=== PATIENT | male | born 1980 | race Caucasian/White ===

== ENCOUNTER 2021-04-11 14:36 | Inpatient (IN) | payer SELFPAY ==
[~2021-04-11] VITALS: Ht 172.7 cm; Wt 59.0 kg
[2021-04-11 14:36] VITALS: BP_SYST 131
--- NOTE | 2021-04-11 14:36 | NUR ---
PT BROUGHT IN BY [facility], PLACED IN BED #1 AND TRIAGED. PT YELLING THAT HE WOULD LIKE TO KILL HIMSELF. HOUSE NORA NAIK NOTIFIED OF NEED FOR SITTER. REPORT GIVEN TO BETTIE
[2021-04-11] MEDS ORDERED: LORazepam 1 MG TABLET PO ONE (15:00)
--- NOTE | 2021-04-11 15:00 | NUR ---
pt yelling and gitting out of bed dr mcbride administered 150mg ketamine im right arm
[2021-04-11] MEDS ORDERED: KETAMINE 30 MG/3 ML SYRINGE IM ONE (15:30)
--- NOTE | 2021-04-11 15:33 | NUR ---
real bonilla and [facility] dept placed on dts 5150 shouting that he wants to kill himself
--- NOTE | 2021-04-11 15:42 | NUR ---
covid and mrsa obtained and sent to lab for processing
--- NOTE | 2021-04-11 15:50 | NUR ---
# 20 gauge angiocath placed to RAC. Use of asceptic technique. Opsite placed over site. Blood return noted. Blood for lab drawn from site. Flushed with 10 cc of normal saline. No evidence of infiltration noted. Patient tolerated well.
--- NOTE | 2021-04-11 16:00 | NUR ---
Patient placed on suicide precautions. Patient placed in room within close proximity to nurses' station for closer observation and monitoring. All clothing removed, placed in hospital gown. All belongings inventoried, placed in bags and removed from room. Patient is not currently medically cleared and is on cardiac and blood pressure monitoring as well as pulse oximetry.
--- NOTE | 2021-04-11 16:09 | NUR ---
security at bedside for wanding and belongings given to Certified Vehicle Fire InvestigatorEben.
--- NOTE | 2021-04-11 16:12 | NUR ---
Oxygen applied at 2 L per minute per nasal cannula O2 sats 99% by pulse oximetry.
[2021-04-11 16:19] LABS: BASOPHILS % (AUTO) 0.6 % (0.0-2.0); EOSINOPHILS % (AUTO) 0.4 % (0.0-4.0); HEMATOCRIT 40.1 % (36-54); HEMOGLOBIN 13.3 g/dL (14.0-18.0); LYMPHOCYTES # (AUTO) 1.9 K/uL (1.0-5.5); MEAN CORPUSCULAR HEMOGLOBIN 26 pg (27-31); MEAN CORPUSCULAR HGB CONC 33 % (32-36); MEAN CORPUSCULAR VOLUME 78 fL (79.0-98.0); MONOCYTES # (AUTO) 0.3 K/uL (0.0-1.0); MONOCYTES % (AUTO) 5.5 % (1.7-9.3); NEUTROPHILS % (AUTO) 57.5 % (40.0-70.0); PLATELET COUNT (AUTO) 242 K/uL (130-430); RED BLOOD CELL COUNT(AUTO) 5.17 MIL/uL (4.2-6.2); RED CELL DISTRIBUTION WIDTH 18.9 % (9.0-15.0); WHITE BLOOD COUNT (AUTO) 5.2 K/uL (4.8-10.8)
[2021-04-11 17:00] LABS: BARBITURATE, URINE NEGATIVE (NEG <=200); BENZODIAZEPINE, URINE POSITIVE (NEG <=150); CANNABINOID, URINE NEGATIVE (NEG <=50); COCAINE, URINE NEGATIVE (NEG <=150); METHAMPHETAMINES SCREEN,URINE NEGATIVE (NEG <=500); OPIATE, URINE NEGATIVE (NEG <=100); PHENCYCLIDINE SCREEN,URINE NEGATIVE (NEG <=25); UR TRICYCLIC ANTIDEPRESSANTS NEGATIVE (NEG <=300); URINE AMPHETAMINE NEGATIVE (NEG <=500); URINE METHADONE NEGATIVE (NEG <=200); URINE OXYCODONE SCREEN NEGATIVE (NEG <=100); URINE PROPOXYPHENE SCREEN NEGATIVE (NEG <=300)
[2021-04-11 17:02] LABS: ANION GAP 15 (5-15); CALCIUM 8.5 mg/dL (8.4-11.0); CHLORIDE 99 mmol/L (98-107); GLUCOSE 106 mg/dL (70-99); POTASSIUM 3.4 mmol/L (3.5-5.1); SODIUM SERUM 138 mmol/L (136-145); UREA NITROGEN, BLOOD 12 mg/dL (8-21)
[2021-04-11 17:09] LABS: GFR AFRICAN AMERICAN 161 mL/min (>90)
[2021-04-11 17:11] LABS: ALANINE AMINOTRANSFERASE 41 U/L (12-78); ALBUMIN 3.9 g/dL (3.4-4.8); ALCOHOL, BLOOD 313 mg/dL (<10); ASPARTATE AMINOTRANSFERASE 23 U/L (10-37); TOTAL BILIRUBIN 0.3 mg/dL (0.0-1.0)
[2021-04-11 17:13] LABS: ACETAMINOPHEN < 1 ug/mL (1-30)
[2021-04-11] MEDS ORDERED: KETAMINE 30 MG/3 ML SYRINGE IVP ONE ×3 (17:30→22:00)
--- NOTE | 2021-04-11 17:31 | NUR ---
PATIENT YELLING AND SCREAMINING. AT BEDSIDE. KETAMINE [address] MG IVP ADMIN[address] BY DR. BATEMAN.
[2021-04-11] MEDS ORDERED: NACL 0.9% 3,000 ML IV ONE (17:45)
--- NOTE | 2021-04-11 17:45 | NUR ---
PATIENT RESTING COMFORTABLY. ON 2L NC SATURATING AT 99% VSS. WILL CONTINUE TO MONITOR.
[2021-04-11] MEDS ORDERED: KETAMINE 30 MG/3 ML SYRINGE ONE (20:30)
--- NOTE | 2021-04-11 20:31 | NUR ---
Patient yelling and screaming stating " I want to ." repeatedly and states "I am going to tonight." Patient attempting to get out of bed and disrobing. notified. Dr. Pritchard at bedside administered Ketamine 60 mg IVP. Will continue to monitor patient.
--- NOTE | 2021-04-11 21:30 | NUR ---
Changed linens on patient's gurney, saturated in urine. found bag with cell phone, seroquel medication and $726.76 counted at bedside with security and sent to safe.
[2021-04-11] MEDS ORDERED: LORazepam 2 MG/ML VIAL ONE (21:41)
[2021-04-11] MEDS ORDERED: LORazepam 2 MG/ML VIAL IVP ONE ×2 (21:45→22:45)
--- NOTE | 2021-04-11 22:08 | NUR ---
Patient awake again yelling and screaming in foreign language. Patient reports wanting to urinate. Patient given urinal. This RN explained to patient michelle the is a fall risk and cannot get out of bed. Patient continues to yell and scream louder. Dr. Pritchard at bedside given Ketamine 60 mg IVP.
[2021-04-11] MEDS ORDERED: ED NON STOCK ORDER 1 EA MISC IM ONE (22:30)
[2021-04-11] MEDS ORDERED: HALOPERIDOL LACTATE 5 MG/ML VIAL ONE (22:49)
--- NOTE | 2021-04-11 22:50 | NUR ---
Patient crawling out of bed and seen on floor on knees. No KO. Abrasion to right forehead. No other injuries noted. MD notified.
[2021-04-11] MEDS ORDERED: OLANZapine IntraMuscular 10 MG VIAL (FOR I.M. INJECTION ONLY) IM ONE (23:00)
[2021-04-11] MEDS ORDERED: HALOPERIDOL LACTATE 5 MG/ML VIAL IM ONE (23:00)
--- NOTE | 2021-04-11 23:15 | NUR ---
Patient placed in four point restraint for safety. Patient yelling and screaming attempting to get out of bed. Dr. Ward placed orders for restraints.
--- NOTE | 2021-04-11 23:18 | NUR ---
Samy pinon in EDM - 04/12/21 at 0102 by [email or web address] Patient placed in four point restraint for safety. Patient yelling and screaming attempting to get out of bed. Dr. Ward placed orders for restraints.
--- NOTE | 2021-04-11 23:20 | NUR ---
accompanied patient to CT scan for CT of head. PAtient tolerated well
--- NOTE | 2021-04-11 23:32 | NUR ---
return from ct scan. patient tolerated well. no acute distress noted. will continue to monitor.
[2021-04-12] VITALS (16 sets, daily range): BP systolic 93–148
--- NOTE | 2021-04-12 00:32 | NUR ---
Samy pinon in EDM - 04/12/21 at 0244 by [email or web address] Patient is medically cleared at this time per .
[2021-04-12] MEDS ORDERED: LORazepam 2 MG/ML VIAL IVP ONE ×4 (01:30→07:30)
--- NOTE | 2021-04-12 01:32 | NUR ---
Patient attempting to get out of bed but currently on restraints. Patient is mildly sedated at this time. will continue to monitor.
--- NOTE | 2021-04-12 02:29 | NUR ---
Patient laying in gurney in four point restraint. Patient able to respond to verbal stimuli. Patient unable to contract for safety and once aroused enough is attempting to get out of bed. Unable to reposition patient at this this time but patient is able to move himself to be comfortable.
[2021-04-12] MEDS ORDERED: NACL 0.9% 1,000 ML IV ONE (02:45)
--- NOTE | 2021-04-12 02:56 | NUR ---
Patient will be admitted to care of [facility]. Admitted to unit. Will go to room . Belongings list completed. Complete and up to date summary report printed. SBAR report to be given at bedside with opportunity for questions.
[2021-04-12] MEDS ORDERED: HALOPERIDOL LACTATE 5 MG/ML VIAL IVP ONE ×3 (03:00→05:15)
[2021-04-12] MEDS ORDERED: FOLIC ACID 1 MG, THIAMINE HCL 100 MG, MAGNESIUM SULFATE 1 GM, MVI 10 ML in NACL 0.9% 1,... IV ONE (03:00)
[2021-04-12] MEDS ORDERED: BENZTROPINE MESYLATE 2 MG/ 2 ML AMP IVP ONE (03:15)
--- NOTE | 2021-04-12 03:15 | NUR ---
REPORT GIVEN TO LANCE ESPOSITO FOR CONTINUATION OF CARE.
[2021-04-12] MEDS ORDERED: MVI 10 ML VIAL IV ONE (03:19)
[2021-04-12] MEDS ORDERED: THIAMINE HCL 100 MG/ML VIAL ONE (03:19)
[2021-04-12] MEDS ORDERED: FOLIC ACID 5 MG/ML VIAL IV ONE (03:19)
[2021-04-12] MEDS ORDERED: MAGNESIUM SULFATE 1 GM/2 ML VIAL ONE (03:19)
--- NOTE | 2021-04-12 03:45 | NUR ---
REPORT RECEIVED FROM LANCE BRUNNER. PT AWAKE AND SCREAMING UNCONTROLLABLY. UNABLE TO VERBALLY CONSOLE PT. N/O FOR HALDOL 5MG GIVEN. IVF STARTED AT 100 ML. IV RUNNING WITHOUT DIFFICULTIES. DENIES ANY PAIN. REPOSITIONED IN BED. PT IN 4 POINT RESTRAINTS DUE TO VIOLENT BEHAVIOR TOWARDS STAFF.
--- NOTE | 2021-04-12 04:30 | NUR ---
GAVE PT URINAL AND OUTPUT OF 700ML OF YELLOW URINE.
--- NOTE | 2021-04-12 04:31 | NUR ---
Medication reconciliation UNABLE TO BE completed D/T PATIENT BEING ALTERED AND INCOHERENT AND COMBATIVE .
--- NOTE | 2021-04-12 05:04 | NUR ---
Patient's code status is [FULL CODE] paperwork completed and placed in chart.
[2021-04-12] MEDS ORDERED: HALOPERIDOL LACTATE 5 MG/ML VIAL ONE (05:43)
--- NOTE | 2021-04-12 05:44 | NUR ---
PT CONTINUE TO YELL AND SCREAM. PT ON 4PT SAFETY RESTRAINTS FOR DANGER TO SELF AND VIOLENT BEHAVIOR. REPOSITIONED FOR COMFORT. VSS. NO SIGNS OF VISUAL DISTRESS AT THIS TIME.
--- NOTE | 2021-04-12 07:03 | NUR ---
REPORT GIVEN TO LANCE ALEXANDRE TO ASSUME ALL CARE OF PT.
--- NOTE | 2021-04-12 08:05 | NUR ---
Patient will be admitted to [facility]. Admitted to icu unit. Will go to room 8. Belongings list completed. Complete and up to date summary report printed. SBAR report to be given at bedside with opportunity for questions.
--- NOTE | 2021-04-12 08:40 | NUR ---
Opening Received report from CHILD WELFARE DIRECTOR using SBAR format. Pt resting comfortably in bed, no signs of immediate distress. Bed locked in lowest position. All safety checks have been completed.
[2021-04-12] MEDS ORDERED: ACETAMINOPHEN 325 MG TABLET PO PRN (09:15)
[2021-04-12] MEDS ORDERED: NALOXONE HCL 0.4 MG/ML AMP (NARCAN) IVP PRN ×2 (09:15)
[2021-04-12] MEDS ORDERED: ONDANSETRON HCL 4 MG/2 ML VIAL IVP PRN (09:15)
[2021-04-12] MEDS ORDERED: BANANA BAG 1 EA, MVI 10 ML, THIAMINE HCL 100 MG, FOLIC ACID 1 MG, MAGNESIUM SULFATE 1 G... IV SCH ×5 (09:15)
--- NOTE | 2021-04-12 10:00 | NUR ---
Rounding Dr Brewer rounding at bedside, updated on pt. New orders received
[2021-04-12] MEDS: D5/0.45 NS 1,000 ML IV SCH (10:20)
[2021-04-12] MEDS: HALOPERIDOL LACTATE 5 MG/ML VIAL IVP PRN ×2 (10:56→22:39)
[2021-04-12] MEDS: THIAMINE HCL 100 MG, MAGNESIUM SULFATE 1 GM in NS 100 ML IV SCH (11:05)
[2021-04-12] MEDS: DEXMEDETOMIDINE HCL 400 MCG in NS 96 ML IV PRN (12:49)
[2021-04-12] MEDS: cefTRIAXone 1 GM in D5W 50 ML IV SCH (12:50)
--- NOTE | 2021-04-12 13:00 | NUR ---
Pt started on precedex to reduce agitation and combative behavior.
[2021-04-12] MEDS: chlordiazePOXIDE HCL 25 MG CAPSULE PO SCH ×2 (15:00→22:07)
[2021-04-12] MEDS: FOLIC ACID 1 MG, MVI 10 ML in NACL 0.9% 1,000 ML IV SCH (15:29)
--- NOTE | 2021-04-12 16:09 | NUR ---
Patient is currently sedated due to violent behavior and ETOH intoxication. He is on a 5150 hold for danger to self and others-placed by the police. Unable to interview the patient at this time due to sedated state.
--- NOTE | 2021-04-12 21:42 | NUR ---
PT YELLING TO PEE BUT ONCE IM IN THE ROOM HE SAYS HE DOES NOT HAVE TO PEE BUT HE'D LIKE COFFEE
[2021-04-12] MEDS: HYDROcodone/ACETAMIN 10-325 MG TAB PO PRN (22:10)
[2021-04-12] MEDS: LORazepam 2 MG/ML VIAL IVP PRN (22:41)
[2021-04-13] VITALS (22 sets, daily range): BP systolic 95–146
[2021-04-13] MEDS: D5/0.45 NS 1,000 ML IV SCH ×3 (02:00→15:15)
[2021-04-13] MEDS: HYDROcodone/ACETAMIN 10-325 MG TAB PO PRN ×2 (03:55→08:26)
[2021-04-13] MEDS ORDERED: DEXMEDETOMIDINE HCL 200 MCG/2 ML VIAL IV ONE (04:34)
[2021-04-13] MEDS: DEXMEDETOMIDINE HCL 400 MCG in NS 96 ML IV PRN ×3 (04:46→22:44)
[2021-04-13 06:57] LABS: BASOPHILS % (AUTO) 0.7 % (0.0-2.0); EOSINOPHILS # (AUTO) 0.1 K/uL (0.0-0.4); EOSINOPHILS % (AUTO) 1.9 % (0.0-4.0); HEMOGLOBIN 10.6 g/dL (14.0-18.0); LYMPHOCYTES # (AUTO) 1.1 K/uL (1.0-5.5); LYMPHOCYTES % (AUTO) 27.2 % (20.5-51.5); MEAN CORPUSCULAR HEMOGLOBIN 25 pg (27-31); MEAN CORPUSCULAR HGB CONC 33 % (32-36); MEAN CORPUSCULAR VOLUME 77 fL (79.0-98.0); MONOCYTES # (AUTO) 0.4 K/uL (0.0-1.0); MONOCYTES % (AUTO) 9.2 % (1.7-9.3); NEUTROPHILS # (AUTO) 2.4 K/uL (1.8-7.7); PLATELET COUNT (AUTO) 162 K/uL (130-430); RED BLOOD CELL COUNT(AUTO) 4.16 MIL/uL (4.2-6.2); RED CELL DISTRIBUTION WIDTH 18.8 % (9.0-15.0); WHITE BLOOD COUNT (AUTO) 3.9 K/uL (4.8-10.8)
[2021-04-13 07:11] LABS: ALBUMIN 2.6 g/dL (3.4-4.8); CALCIUM 7.9 mg/dL (8.4-11.0); CREATININE 0.59 mg/dL (0.55-1.30); PHOSPHORUS 2.8 mg/dL (2.7-4.5); POTASSIUM 3.1 mmol/L (3.5-5.1); TOTAL BILIRUBIN 0.5 mg/dL (0.0-1.0)
[2021-04-13] MEDS: HALOPERIDOL LACTATE 5 MG/ML VIAL IVP PRN ×3 (08:08→23:20)
[2021-04-13] MEDS: LORazepam 2 MG/ML VIAL IVP PRN ×3 (08:10→23:19)
[2021-04-13] MEDS: chlordiazePOXIDE HCL 25 MG CAPSULE PO SCH ×3 (08:26→20:36)
[2021-04-13] MEDS ORDERED: KCL 40 mEq in 100 mL (PREMIX) 100 ML IV ONE (09:00)
--- NOTE | 2021-04-13 09:52 | NUR ---
LATER CALL, CAME IN @0750, STARTED CARE OF THIS PT. LYING ON BED, ON RESTRAINT, YELLING AROUND, PEED AROUND BED AND FLOOR. NO RESPIRATORY ISSUE, NO SOB, BREATHING EVEN. PRECEDEX DRIP ON 0.2MCG. D5 1/2NS ON 100ML/HR. VS STABLE. ATIVAN 1MG, HALDO. 2MG IVP PRN GIVEN. BUT SEEMS NO EFFECTIVE, PT STILL YELLING AROUND. PRECEDEX GRADUALLY TITRIPPED UP TO 1.2 FROM 0.4. NOW PT BECAME QUIET DOWN. DR. GONZALEZ CAME @0900 TO VISIT PT. SITUATION UPDATED TO HIM. HE ORDERED F/C INSERTION WHICH DONE @0940.
[2021-04-13] MEDS ORDERED: POTASSIUM CHLORIDE 40 MEQ in NS 250 ML IV ONE (10:00)
[2021-04-13] MEDS: cefTRIAXone 1 GM in D5W 50 ML IV SCH (10:14)
[2021-04-13] MEDS: THIAMINE HCL 100 MG, MAGNESIUM SULFATE 1 GM in NS 100 ML IV SCH (11:21)
[2021-04-13] MEDS: FOLIC ACID 1 MG, MVI 10 ML in NACL 0.9% 1,000 ML IV SCH (11:21)
--- NOTE | 2021-04-13 11:45 | NUR ---
Nutrition Update Grey Scale 17 noted. Pt admitted for altered mental status/alcohol withdrawal. Diet: NPO BMI: 19.8 kg/m2 RD to follow per nutrition care standards.
--- NOTE | 2021-04-13 13:30 | NUR ---
Psych consult called to Dr. Camp and left message on pager number in the directory. Unable to reach the water treatment operator using his paging system. The message said to leave a message and he would return the call within 24 hours. Narendra Cueto did not return a call to us after Dr. Hui texted him the consult this morning.
--- NOTE | 2021-04-13 13:32 | NUR ---
BELONGINGS Pts money and license are in the admitting safe, $728. His clothes are with the security messenger safe.
--- NOTE | 2021-04-13 17:00 | NUR ---
PT WOKE UP AND CO HUNGRY. SANDWITCH AND JUICE OFFERED, PT ATE WELL. DR. GONZALEZ WAS CALLED BY ALEJO LUCAS. REGULAR DIET TRAY WAS ORDERED IN COMPUTER.
--- NOTE | 2021-04-13 19:30 | NUR ---
RECEIVED REPORT ON PATIENT FROM LANCE CONCEPCION, ASSUMED CARE AND STARTED ASSESSMENT. PATIENT IS LOUD AND NEEDY. HE IS DEMANDING FOOD AND WATER. WHEN I REMOVED THE RESTRAINTS FROM HIS RIGHT HAND SO THAT HE COULD EAT HE BECAME UNRULY SAYING THAT HE WAS UNABLE TO EAT WITH ONE HAND. BECAUSE OF HIS DEMEANOR AND ATTITUDE I WAS NOT COMFORTYABLE REMOVING BOTH RESTRAINTS. HE REFUSED TO EAT. I REPLACED THE RIGHT HAND RESTRAINT. HE KICKED HIS TRAY SO HARD THAT THE FOOD WAS SPREAD LL OVER THE FLOOR IN HIS ROOM. CLEANED UP THE MESS. WILL CONTINUE TO MONITOR AND ASSESS FOR SAFETY AND COMFORT.
[2021-04-13] MEDS: QUEtiapine FUMARATE 25 MG TABLET PO SCH (21:55)
[2021-04-13] MEDS: DIAZEPAM 5 MG TABLET (VALIUM) PO SCH (21:55)
[2021-04-14] VITALS (20 sets, daily range): BP systolic 90–138
[2021-04-14] MEDS: LORazepam 2 MG/ML VIAL IVP PRN (03:09)
[2021-04-14] MEDS: HALOPERIDOL LACTATE 5 MG/ML VIAL IVP PRN (03:10)
--- NOTE | 2021-04-14 05:13 | NUR ---
PARTIAL BED BATH AND PARTIAL LINEN CHANGE GIVEN. PATIENT REMAINS OBNOXIOUS, UNRULY AND DISRESPECTFUL WITH CURSING AND YELLING. WILL CONTINUE TO MONITOR AND ASSESS FOR SAFETY NAD COMFORT.
--- NOTE | 2021-04-14 06:00 | NUR ---
PATIENT WAS ABLE TO CONVINCE THE MANAGER REGIONAL THAT HE WOULD BE ABLE TO CONTROL HIMSELF AND NOT MOLEST THE MEDICAL APPARATI, OR THE HOSPITAL PERSONNEL. RESTRAINTS WERE DISCONTINUED.
[2021-04-14] MEDS: QUEtiapine FUMARATE 25 MG TABLET PO SCH ×3 (06:02→20:47)
[2021-04-14] MEDS: DIAZEPAM 5 MG TABLET (VALIUM) PO SCH ×3 (06:02→20:47)
[2021-04-14 07:49] LABS: CALCIUM 8.2 mg/dL (8.4-11.0); CREATININE 0.66 mg/dL (0.55-1.30); POTASSIUM 3.1 mmol/L (3.5-5.1)
--- NOTE | 2021-04-14 08:05 | NUR ---
PT PULLED OUT PIV, REFUSING PLACEMENT OF ANOTHER, PT IS NOT ANXIOUS, AGGRESSIVE, HE JUST SAID " I DONT WANT AN IV, WHEN I TRIED TO PUT ANOTHER IN."
[2021-04-14] MEDS: chlordiazePOXIDE HCL 25 MG CAPSULE PO SCH ×3 (08:10→20:47)
[2021-04-14 08:28] LABS: BASOPHILS % (AUTO) 0.4 % (0.0-2.0); EOSINOPHILS # (AUTO) 0.1 K/uL (0.0-0.4); EOSINOPHILS % (AUTO) 2.2 % (0.0-4.0); HEMATOCRIT 33.8 % (36-54); HEMOGLOBIN 11.1 g/dL (14.0-18.0); LYMPHOCYTES # (AUTO) 1.5 K/uL (1.0-5.5); LYMPHOCYTES % (AUTO) 24.9 % (20.5-51.5); MEAN CORPUSCULAR HEMOGLOBIN 25 pg (27-31); MEAN CORPUSCULAR HGB CONC 33 % (32-36); MEAN CORPUSCULAR VOLUME 77 fL (79.0-98.0); MONOCYTES # (AUTO) 0.4 K/uL (0.0-1.0); MONOCYTES % (AUTO) 5.9 % (1.7-9.3); NEUTROPHILS # (AUTO) 3.9 K/uL (1.8-7.7); NEUTROPHILS % (AUTO) 66.6 % (40.0-70.0); PLATELET COUNT (AUTO) 186 K/uL (130-430); RED BLOOD CELL COUNT(AUTO) 4.39 MIL/uL (4.2-6.2); RED CELL DISTRIBUTION WIDTH 18.8 % (9.0-15.0); WHITE BLOOD COUNT (AUTO) 5.9 K/uL (4.8-10.8)
--- NOTE | 2021-04-14 09:06 | NUR ---
PT REMOVED PULSE OX, REFUSES PLACEMENT OF ANOTHER
--- NOTE | 2021-04-14 10:14 | NUR ---
AT 1009, SPOKE WITH DR. DOE BY PHONE, STATED THAT PATIENT DOESNT WANT AN IV AND ASKED MD TO CONVERT ALL MEDICATIONS TO PO OR PO EQUIVALENT. DR. DOE STATED THAT HE WOULD DO THAT.
[2021-04-14 10:30] LABS: C-REACTIVE PROTEIN QUANT 8.5 mg/dL (0-0.5)
--- NOTE | 2021-04-14 10:45 | NUR ---
at 1045 pt removed tele leads, pt is not aggressive or surely, he just refused tele monitoring.
[2021-04-14] MEDS: HYDROcodone/ACETAMIN 10-325 MG TAB PO PRN ×4 (11:18→23:55)
[2021-04-14] MEDS: POTASSIUM CHLORIDE 20 MEQ/PKT PACKET PO SCH ×2 (11:30→21:12)
[2021-04-14 12:22] LABS: ERYTHROCYTE SEDIMENTATION RATE 33 MM/HR (0-15)
[2021-04-14] MEDS ORDERED: levoFLOXacin 250 MG TABLET PO SCH (14:30)
[2021-04-14] MEDS: levoFLOXacin 250 MG TABLET PO SCH (16:33)
--- NOTE | 2021-04-14 18:01 | NUR ---
Patient states that someone trimmed his spears and is very upset because his "spears is for God". I spoke with the charge nurse and she suggested escalating to the fun house attendant. I phone the fun house attendant and she stated that she would come see patient and address his concerns when she is done with staffing.
--- NOTE | 2021-04-14 20:00 | NUR ---
[place] of care Pt yelling profanities loudly. Provided pt with food and medications. No IV site in place, aware.
[2021-04-14] MEDS ORDERED: POTASSIUM CHLORIDE 20 MEQ/PKT PACKET ONE (20:53)
--- NOTE | 2021-04-14 22:30 | NUR ---
Pt noted yelling loudly and attempting to get out of bed. Listened to patient and provided pt with food and PRN meds.
[2021-04-15] VITALS: BP_SYST 102
[2021-04-15] MEDS ORDERED: COMMUNICATION ORDER XX ONE
[2021-04-15] MEDS ORDERED: LORazepam 1 MG TABLET PO PRN (00:30)
[2021-04-15] MEDS ORDERED: HALOPERIDOL 1 MG TABLET (HALDOL) PO PRN (00:30)
--- NOTE | 2021-04-15 01:10 | NUR ---
Pt refused to drink 2nd dose of potassium
--- NOTE | 2021-04-15 01:20 | NUR ---
Transfer to [facility] Pt transfer to med surg 132A. No belongings with pt. Endorsement given to LANCE.
--- NOTE | 2021-04-15 01:26 | NUR ---
RECEIVED PT TRANSFER PT STABLE. NO SIGNS OF DISTRESS NOTED. SAFETY PRECAUTIONS IN PLACE. NO IV. WILL CONTINUE TO MONITOR
[2021-04-15] MEDS: DIAZEPAM 5 MG TABLET (VALIUM) PO SCH ×3 (05:42→21:11)
[2021-04-15] MEDS: QUEtiapine FUMARATE 25 MG TABLET PO SCH ×3 (05:42→21:11)
[2021-04-15 08:00] VITALS: BP_SYST 148
--- NOTE | 2021-04-15 08:00 | NUR ---
NOTES PATIENT ALERT AWAKE X 1-2. LUNGS BILATERALLY CLEAR. ABDOMEN SOFT AND NON DISTENDED. NO IV ACCESS. HAS GONZALEZ CATHETER IN PLACED DRAINING WELL. DILIA YELLOW URINE. CALL LIGHTS WITHIN REACH. BED LOW POSITION, ALARMED AND LOCKED. WILL CONTINUE TO MONITOR PATIENTS STATUS.
--- NOTE | 2021-04-15 09:00 | NUR ---
ZOFRAN ODT GIVEN FOR NAUSEA/VOMITTING. BUT REFUSED TO TAKE THE AM MEDS.
[2021-04-15] MEDS: ONDANSETRON 4 MG ODT TAB PO PRN ×2 (09:55→13:58)
[2021-04-15] MEDS: levoFLOXacin 250 MG TABLET PO SCH (09:58)
[2021-04-15] MEDS: chlordiazePOXIDE HCL 25 MG CAPSULE PO SCH ×3 (09:58→21:11)
--- NOTE | 2021-04-15 09:58 | NUR ---
ZOFRAN ODT PO GIVEN FOR NAUSEA/VOMITTING. X 1
[2021-04-15 14:38] LABS: BASOPHILS % (AUTO) 0.3 % (0.0-2.0); EOSINOPHILS # (AUTO) 0.2 K/uL (0.0-0.4); EOSINOPHILS % (AUTO) 1.9 % (0.0-4.0); HEMATOCRIT 35.5 % (36-54); HEMOGLOBIN 11.9 g/dL (14.0-18.0); LYMPHOCYTES # (AUTO) 1.5 K/uL (1.0-5.5); LYMPHOCYTES % (AUTO) 14.2 % (20.5-51.5); MEAN CORPUSCULAR HEMOGLOBIN 26 pg (27-31); MEAN CORPUSCULAR HGB CONC 34 % (32-36); MEAN CORPUSCULAR VOLUME 77 fL (79.0-98.0); MONOCYTES # (AUTO) 0.4 K/uL (0.0-1.0); MONOCYTES % (AUTO) 4.2 % (1.7-9.3); NEUTROPHILS # (AUTO) 8.1 K/uL (1.8-7.7); NEUTROPHILS % (AUTO) 79.4 % (40.0-70.0); PLATELET COUNT (AUTO) 203 K/uL (130-430); RED CELL DISTRIBUTION WIDTH 18.7 % (9.0-15.0); WHITE BLOOD COUNT (AUTO) 10.2 K/uL (4.8-10.8)
[2021-04-15 14:56] LABS: CALCIUM 8.4 mg/dL (8.4-11.0); CREATININE 0.83 mg/dL (0.55-1.30); POTASSIUM 3.7 mmol/L (3.5-5.1)
--- NOTE | 2021-04-15 15:21 | NUR ---
REFUSED TO TAKE PO MEDS. AND WANTS TO GO HOME AND REMOVED HIS GONZALEZ CATHETER. AWAITING TO CALL BACK.
--- NOTE | 2021-04-15 16:00 | NUR ---
DR GONZALEZ CALLED AND AWAITED TO CALL BACK AND INFORMED THAT PATIENT WANTS TO GO HOME AND REMOVED THE GONZALEZ CATHETER. FORTUNATELY HE TOOK THE MEDICATION ORDERED.
[2021-04-15 17:34] VITALS: BP_SYST 132
[2021-04-15 17:36] VITALS: BP_SYST 138
--- NOTE | 2021-04-15 19:30 | NUR ---
Opening note Received report from day shift. Pt is awake sitting up in bed shouting. Redirected pt to lie back in bed. Fall and safety precautions in place with bed in lowest position, bed alarm on, and call light within reach,
[2021-04-15 20:00] VITALS: BP_SYST 125
[2021-04-15] MEDS: HYDROcodone/ACETAMIN 5-325 MG TAB (NORCO/ VICODIN) PO PRN (23:47)
--- NOTE | 2021-04-16 00:15 | NUR ---
Rounds Pt awake in bed yelling that he is hungry and wants food. explained to pt that he is on a clear liquid diet. offered chicken broth in which pt agreed to and drank
[2021-04-16] MEDS: HYDROcodone/ACETAMIN 5-325 MG TAB (NORCO/ VICODIN) PO PRN (04:11)
[2021-04-16] MEDS: DIAZEPAM 5 MG TABLET (VALIUM) PO SCH ×3 (06:00→14:24)
[2021-04-16] MEDS: QUEtiapine FUMARATE 25 MG TABLET PO SCH ×3 (06:00→14:24)
--- NOTE | 2021-04-16 06:53 | NUR ---
Closing note Pt awake in bed shouting for breakfast. Told pt his breakfast tray will be coming soon around 7-7:30. Moore catheter intact and draining by gravity. All needs met throughout shift. Fall and safety precautions in place with bed in lowest position, bed alarm on, and call light within reach
--- NOTE | 2021-04-16 08:00 | NUR ---
Initial notes Agitated at this time. Wants food, patient does not want clear liquid diet. Pt stated stated that she is not vomiting anymore. Instructed pt that we will call doctor to advance diet.
[2021-04-16] MEDS: levoFLOXacin 250 MG TABLET PO SCH (09:13)
[2021-04-16] MEDS: chlordiazePOXIDE HCL 25 MG CAPSULE PO SCH ×2 (09:13→15:00)
[2021-04-16] MEDS: HYDROcodone/ACETAMIN 10-325 MG TAB PO PRN (09:33)
--- NOTE | 2021-04-16 10:15 | NUR ---
notes- patients wants to remove his mcclellan catheter, stated he feels better now. Instructed patient that we can removed it and if he still retaining urine then we can put it back. Patient verbalize understanding.
[2021-04-16] MEDS ORDERED: FOLI-43 PO (11:31)
[2021-04-16] MEDS ORDERED: MULT-1089 PO (11:31)
[2021-04-16] MEDS ORDERED: THIA100T70 PO (11:31)
[2021-04-16] MEDS ORDERED: LIB25 PO (11:31)
[2021-04-16] MEDS ORDERED: HYDR-3919 PO (11:31)
[2021-04-16] MEDS ORDERED: LEVO250T43 PO (11:31)
--- NOTE | 2021-04-16 13:10 | NUR ---
CARLEE THOMPSON REGARDING CONSULT. SPOKE WITH REGINE
--- NOTE | 2021-04-16 15:09 | NUR ---
Notes- Agitated at this time, patients looking fo his clothing, informed patient's that his belongings is on the safe, pt calm down a this time.
[2021-04-16 15:34] VITALS: BP_SYST 111
--- NOTE | 2021-04-16 15:43 | NUR ---
Spoke w/ patient-he staed he lives w/ his uncle at [address] [place] [address] in [place]. He could not give me a phone #. He stated he will take the bus home when he is discharged.
--- NOTE | 2021-04-16 16:01 | NUR ---
Notes- Ambulate to the bathroom and voided. denies any pain or discomfort. Wants to go home.
--- NOTE | 2021-04-16 16:30 | NUR ---
Notes- Spoke to Dr. Pleitez Re: discharge order. Per MD he knows the patient , apparently he was just discharged from other hospital/facility for alcohol withdrawal. stated that patient can be discharged home.
[2021-04-16 17:17] VITALS: BP_SYST 111
--- NOTE | 2021-04-16 17:36 | NUR ---
Discharge home, awake, alert and oriented. denies any pain or discomfort. Ambulate with steady gait. discharge instruction and prescription discussed with patient. Verbalize understanding. Patient stated that he will take the bus or a taxi. all belongings sent. no iv acces.
== END 2021-04-16 17:36 | disposition home or self-care (01) | DRG 193 ==
LOC: SED 14:36 → SIC 04-12 02:52 → SMU 04-15 01:21
PROVIDERS: ADMIT Preventive Medicine Preventive Medicine/Occupational Environmental Medicine; ATTEND Preventive Medicine Preventive Medicine/Occupational Environmental Medicine
DX: J18.9 Pneumonia, unspecified organism (principal); E43 Unspecified severe protein-calorie malnutrition; E87.1 Hypo-osmolality and hyponatremia; R45.851 Suicidal ideations; F10.231 Alcohol dependence with withdrawal delirium; F10.221 Alcohol dependence with intoxication delirium; Z68.1 Body mass index [BMI] 19.9 or less, adult; Z20.822 Contact with and (suspected) exposure to COVID-19; D64.9 Anemia, unspecified; D72.819 Decreased white blood cell count, unspecified; S52.091A Other fracture of upper end of right ulna, initial encounter for closed fracture; X58.XXXA Exposure to other specified factors, initial encounter; E83.52 Hypercalcemia; E87.6 Hypokalemia; Y90.8 Blood alcohol level of 240 mg/100 ml or more; Z78.1 Physical restraint status; Y93.89 Activity, other specified; Y92.89 Other specified places as the place of occurrence of the external cause; Y99.8 Other external cause status
CPT/HCPCS: 36415; 70450-TC; 71045; 73090; 76376; 80048; 80053; 80307; 82550; 83735; 84100; 85025; 85651-TC; 86140; 87081; 93005; 96361; 96372; 96374; 99285; G0480; G0481; G0482; J0515; J0696; J1630; J2060; J3411; J3475; J3480; J3490; J7030; J7050; J7060; Q0162